=== PATIENT | female | born 1960 | race Caucasian/White ===

== ENCOUNTER 2017-04-10 19:04 | Emergency (ER) | payer BC ==
[2017-04-10 19:34] VITALS: BP 129/60
[2017-04-10] MEDS ORDERED: Clindamycin CAP* 150 MG PO ONE (19:54)
[2017-04-10] MEDS ORDERED: Ketorolac INJ* 30 MG/ML 1 ML VIAL IM ONE (19:54)
[2017-04-10] MEDS ORDERED: Ondansetron ODT TAB* 4 MG PO ONE (19:55)
--- NOTE | 2017-04-10 20:09 | UC ---
Dental HPI - HPI Summary HPI Summary: Started with temperature sensitivity in L bottom molar about 10 days ago, got gradually more painful and finally got in with dentist 4 days ago -- told she needs a root canal. Started amox, has been taking ibuprofen, and has taken some doses of hydrocodone with APAP. Started feeling a bit better 3 dyas ago, but now pain is worsening and nothing is helping. Vomited after taking 2 hydrocodone together this evening. Called dentist and will have sooner appointment, but work cannot be done with inflamed root. - History of Current Complaint Chief Complaint: UCDentalProblem Stated Complaint: DENTAL PAIN Time Seen by Provider: 04/10/17 19:39 Hx Obtained From: Patient ?: No Onset/Duration: Gradual Onset, Lasting Days Severity: Severe Aggravating Factor(s): Heat, Cold, Chewing Alleviating Factor(s): Nothing Related History: Previous Dental Care on Same Tooth - has crown - Allergies/Home Medications Allergies/Adverse Reactions: Allergies Allergy/AdvReac Type Severity Reaction Status Date / Time Codeine Allergy Nausea And Verified 04/10/17 19:34 Vomiting Sulfa Drugs Allergy Nausea And Verified 04/10/17 19:34 Vomiting Home Medications: Home Medications Bupropion HCl [Wellbutrin Sr] 1 tab PO DAILY 04/10/17 [History Confirmed ] PMH/Surg Hx/FS Hx/Imm Hx Previously Healthy: Yes - Surgical History Surgical History: Yes Surgery Procedure, Year, and Place: Gallbladder 2007 - Family History Known Family History: Negative: Blood Disorder - Social History Occupation: Employed Full-time Alcohol Use: Occasionally Substance Use Type: Prescribed Smoking Status (MU): Never Smoked Tobacco Type: Cigarettes Amount Used/How Often: social smoker When Did the Patient Quit Smoking/Using Tobacco: 1993 - Immunization History Most Recent Influenza Vaccination: Most Recent Tetanus Shot: Not sure Review of Systems Constitutional: Negative Skin: Negative Eyes: Negative ENT: Dental Pain Respiratory: Negative Cardiovascular: Negative Gastrointestinal: Negative Genitourinary: Negative Motor: Negative Neurovascular: Negative Musculoskeletal: Negative Neurological: Negative Psychological: Negative Is Patient Immunocompromised?: No All Other Systems Reviewed And Are Negative: Yes Physical Exam Triage Information Reviewed: Yes Appearance: Pain Distress - mod, teary, Obese Vital Signs: Initial Vital Signs Temp 97.7 F 04/10/17 19:30 Pulse 76 04/10/17 19:30 Resp 18 04/10/17 19:30 BP 129/60 04/10/17 19:30 Pulse Ox 100 04/10/17 19:30 Vital Signs Reviewed: Yes Eye Exam: Normal Eyes: Positive: Conjunctiva Clear ENT Exam: Normal ENT: Positive: Normal ENT inspection, Hearing grossly normal, Pharynx normal, TMs normal Dental: Positive: Percussion Tenderness @ - #19, also has a crown. Negative: Gross Decay/Caries @, Dental Fracture @, Abscess @ Neck exam: Normal Neck: Positive: No Lymphadenopathy Respiratory Exam: Normal Respiratory: Positive: Chest non-tender, Lungs clear, Normal breath sounds, No respiratory distress, No accessory muscle use Cardiovascular Exam: Normal Cardiovascular: Positive: RRR Musculoskeletal Exam: Normal Neurological Exam: Normal Neurological: Positive: Alert Psychological Exam: Normal Skin Exam: Normal Dental Complaint Course/Dx - Differential Dx/Diagnosis Provider Diagnoses: Dental pain #19 Discharge - Discharge Plan Condition: Stable Disposition: HOME Prescriptions: Clindamycin Cap(NF) [Clindamycin Cap 300 mg Cap(NF)] 300 mg PO QID #20 cap Oxycodone W/ Acetaminophen [Endocet 7.5-325 mg] 1 tab PO QID PRN #20 tab MDD 4 PRN Reason: pain Patient Education Materials: Toothache (ED) Additional Instructions: Keep following up with your dentist. If you have fever, widespread swelling, or worsening pain, please come back for re-evaluation.
== END 2017-04-10 20:23 | disposition home or self-care (01) ==
LOC: UCEAST 19:04
DX: K08.89 Other specified disorders of teeth and supporting structures (principal); E66.9 Obesity, unspecified; Z90.49 Acquired absence of other specified parts of digestive tract; Z88.5 Allergy status to narcotic agent; Z88.2 Allergy status to sulfonamides; Z72.0 Tobacco use
CPT/HCPCS: 96372; 99212; A9270-GY; G0463; J1885

== ENCOUNTER 2018-02-25 09:38 | Emergency (ER) | payer BC ==
[2018-02-25 09:47] VITALS: BP 109/61
--- NOTE | 2018-02-25 09:51 | UC ---
Headache HPI - HPI Summary HPI Summary: 57 y/o female presents to the urgent care c/o headache w/ sinus pressure , nasal congestion and yellowish nasal discharge for 1 week. Pt reports symptoms started about 2 weeks w/ a mild cold. Then +PND has increased w/ a dry cough. Now she has an intermittent HENDRIX, dull in the frontal sinuses RT>LF which improves by taking Advil PO 400mg. She denies fever, dizziness, SOB, chest pain , abdominal pain, N/V/D, ear pain. - History Of Current Complaint Chief Complaint: UCHeadache Stated Complaint: HEADACHE Time Seen by Provider: 02/25/18 09:50 Hx Obtained From: Patient Onset/Duration: Gradual Onset, Lasting Weeks - 2 weeks, Still Present, Worse Since - last week Initially Headache Was: Mild Currently Pain Is: Mild Pain Intensity: 4 - frontal and sinus HENDRIX Pain Scale Used: 0-10 Numeric Timing: Intermittent, Lasting:, Hours - 2 hrs Character: Pressure Location of Headache: Frontal, Other: - sinuses Aggravating Factor(s): Other - nasal congestions w/ yellwoish drainage Allevating Factor(s): Medication - Advil PO Associated Signs And Symptoms: Positive: Sinus Pressure, Other (Noted In Comments) - nasal congestion and ppressure w/ +PND. Negative: Dizziness, Seizure, Nausea, Vomiting, Fever, Neck Pain, Neck Stiffness, Decreased LOC, Visual Changes - Risk Factors SAH Risk Factors: Negative Meningitis Risk Factors: Negative SDH Risk Factors: Negative Temporal Arteritis Risk Factors: Negative - Allergies/Home Medications Allergies/Adverse Reactions: Allergies Allergy/AdvReac Type Severity Reaction Status Date / Time codeine Allergy Nausea Verified 02/25/18 09:47 Sulfa (Sulfonamide Allergy Nausea Verified 02/25/18 09:47 Antibiotics) PMH/Surg Hx/FS Hx/Imm Hx Previously Healthy: Yes - Pt denies PMHX - Surgical History Surgical History: Yes Surgery Procedure, Year, and Place: Gallbladder 2007 - Family History Known Family History: Positive: Diabetes Negative: Blood Disorder - Social History Occupation: Employed Full-time Lives: With Family Alcohol Use: Occasionally Substance Use Type: Prescribed Smoking Status (MU): Never Smoked Tobacco Type: Cigarettes Amount Used/How Often: social smoker When Did the Patient Quit Smoking/Using Tobacco: 1993 - Immunization History Most Recent Influenza Vaccination: Most Recent Tetanus Shot: Not sure Review of Systems All Other Systems Reviewed And Are Negative: Yes Constitutional: Positive: Negative Skin: Positive: Negative Eyes: Positive: Negative ENT: Positive: Ear Ache - b/L ear pressure, Nasal Discharge - yellowish, Sinus Congestion, Sinus Pain/Tenderness Respiratory: Positive: Cough - dry Cardiovascular: Positive: Negative Gastrointestinal: Positive: Negative Genitourinary: Positive: Negative Motor: Positive: Negative Neurovascular: Positive: Negative Musculoskeletal: Positive: Negative Neurological: Positive: Headache Is Patient Immunocompromised?: No Physical Exam - Summary Physical Exam Summary: Vitals: reviewed General: Well developed, well-nourished female patient with NAD. Head and face: Normocephalic and atraumatic, Positive tenderness over the frontal and maxillary sinuses.. Eyes: PERRLA, EOMI x 2. Normal conjunctiva. No eye discharge. ENT: Ears and TM with normal limits. Nose: edematous and erythematous nasal mucosa with with yellowish discharge and erythematous mucosa. Pharynx with erythema, no exudate. +yellowish PND Neck: Supple, no JVD, no carotid bruits and no lymphadenopathy. Lungs: clear, no rales, no rhonchi, no wheezes. CVS: RRR, S1 and S2 present no murmurs or gallops appreciated. Abdomen: soft nontender with positive bowel sounds. Extremities: no edema noted. Neuro: WNL. Skin: warm and dry Triage Information Reviewed: Yes Vital Signs: Initial Vital Signs Temp 97 F 02/25/18 09:44 Pulse 85 02/25/18 09:44 Resp 16 02/25/18 09:44 BP 109/61 02/25/18 09:44 Pulse Ox 98 02/25/18 09:44 Headache Course/Dx - Course Course Of Treatment: 57 y/o female presents to the urgent care c/o headache w/ sinus pressure , nasal congestion and yellowish nasal discharge for 1 week. Pt reports symptoms started about 2 weeks w/ a mild cold. Then +PND has increased w / a dry cough. Now she has an intermittent HENDRIX, dull in the frontal sinuses RT> LF which improves by taking Advil PO 400mg. She denies fever, dizziness, SOB, chest pain, abdominal pain, N/V/D, ear pain. Hx obtained Pt w/ bacterial sinusitis on examination.Pt with 2 weeks of symptoms getting worse. Pt Rx Augmentin PO and flonase nasal spray and Ibuprofen PO to alleviate symptoms. Discharge instructions explained to Pt. Advised to Return to the clinic or PCP if symptoms do not improve.Pt understood and agreed with plan of care. - Differential Dx/Diagnosis Differential Diagnosis/HQI/PQRI: Migraine, Sinus Headache, Temporal Arteritis, Tension Headache, Viral Syndrome, Other - acute bacterial sinusitis, URI, bronchitis Provider Diagnosis: Acute bacterial sinusitis, Sinus headache Discharge - Sign-Out/Discharge Documenting (check all that apply): Patient Departure - d/c home All imaging exams completed and their final reports reviewed: No Studies - Discharge Plan Condition: Stable Disposition: HOME Prescriptions: Amoxicillin/Clavulanate TAB* [Augmentin TAB 875*] 875 mg PO BID #20 tab Fluticasone NASAL SPRAY 50MCG* [Flonase NASAL SPRAY 50MCG*] 2 spray BOTH NARES DAILY #1 btl Ibuprofen TAB* [Motrin TAB* 600 MG] 600 mg PO Q6H PRN #30 tab PRN Reason: Headache Patient Education Materials: Sinusitis (ED) Referrals: Michael Shirley MD [Primary Care Provider] - 1 Week Additional Instructions: 1- Please increase fluid intake and rest. take full course of antibiotic to avoid resistance. Take yogurt w/ Probiotics or Culturelle to protect your GI system 2-Use Flonase as directed to help drain fluid. Also buy saline drops to clear sinuses 3-Take Ibuprofen PO to alleviates sinus Headache 4-Return to the clinic or PCP in 1 week if symptoms do not improve for further management and treatment - Billing Disposition and Condition Condition: STABLE Disposition: Home
== END 2018-02-25 10:09 | disposition home or self-care (01) ==
LOC: UCEAST 09:38
DX: J01.90 Acute sinusitis, unspecified (principal); B96.89 Other specified bacterial agents as the cause of diseases classified elsewhere; R21 Rash and other nonspecific skin eruption; Z88.5 Allergy status to narcotic agent; Z88.2 Allergy status to sulfonamides; F17.210 Nicotine dependence, cigarettes, uncomplicated
CPT/HCPCS: 99212; G0463